=== PATIENT | female | born 1955 | race Caucasian/White ===

== ENCOUNTER → 2017-12-25 | Outpatient (CLI) | payer OTHER ==
[~2017-12-25] MED LIST: ACETAMINOPHEN650 M5 PO; ADULT LOW DOSE81 MG PO; DIOVAN HCT 1601 EACH PO; GLUCOPHAGE XR500 MG PO; HCTZ OR; HTN MED; LOPRESSOR PO; NITROGLYCERIN0.4 MG SL; PLAVIX 75 MG TA75 MG PO; VICODIN 5-5001 EACH PO; ZOCOR 10 MG TAB10 MG PO; ZOCOR PO
== END ==
LOC: M.RAD 11:37
DX: J98.4 Other disorders of lung (principal); R06.09 Other forms of dyspnea; I10 Essential (primary) hypertension; E78.5 Hyperlipidemia, unspecified

== ENCOUNTER → 2018-12-29 | Outpatient (CLI) | payer OTHER | LOC: M.RAD 09:07 | DX: Z12.31 Encounter for screening mammogram for malignant neoplasm of breast (principal) ==